=== PATIENT | female | born 1965 | race Caucasian/White ===

== ENCOUNTER → 2020-02-21 | Outpatient (CLI) | payer OTHER | END | disposition home or self-care (01) | LOC: COVID19 12:31 | PROVIDERS: ATTEND Nurse Practitioner Family | DX: D89.9 Disorder involving the immune mechanism, unspecified (principal); J45.909 Unspecified asthma, uncomplicated; Z20.828 Contact with and (suspected) exposure to other viral communicable diseases ==

== ENCOUNTER 2023-04-03 18:53 | Emergency (ER) | payer OTHER ==
[~2023-04-03] VITALS: Ht 160 cm; Wt 93.0 kg
[2023-04-03] MEDS ORDERED: LANSOPRAZOLE30 MG PO (19:21)
[2023-04-03] MEDS ORDERED: PLAQUENIL200 MG PO (19:22)
[2023-04-03] MEDS ORDERED: Ipratropium Brom3 ML INH (19:22)
[2023-04-03] MEDS ORDERED: TOPROL XL25 MG PO (19:23)
[2023-04-03] MEDS ORDERED: SLOW-MAG71.5 MG PO (19:23)
[2023-04-03] MEDS ORDERED: PRAVASTATIN SOD40 MG PO (19:23)
[2023-04-03] MEDS ORDERED: PROBIOTIC1 EAC2 PO (19:23)
[2023-04-03] MEDS ORDERED: HYDROCODONE-AC1 EAC1 PO (22:00)
== END 2023-04-03 22:39 | disposition home or self-care (01) ==
LOC: ED 18:53
DX: S92.354A Nondisplaced fracture of fifth metatarsal bone, right foot, initial encounter for closed fracture (principal); M25.551 Pain in right hip; M25.522 Pain in left elbow; M25.562 Pain in left knee; M25.572 Pain in left ankle and joints of left foot; J45.909 Unspecified asthma, uncomplicated; E78.00 Pure hypercholesterolemia, unspecified; Z91.041 Radiographic dye allergy status; Z88.8 Allergy status to other drugs, medicaments and biological substances; Z91.040 Latex allergy status; W01.0XXA Fall on same level from slipping, tripping and stumbling without subsequent striking against object, initial encounter; Y93.89 Activity, other specified; Y92.009 Unspecified place in unspecified non-institutional (private) residence as the place of occurrence of the external cause; Y99.8 Other external cause status

== ENCOUNTER → 2023-05-05 | Outpatient (CLI) | payer OTHER ==
[~2023-05-05] MED LIST: HYDROCODONE-AC1 EAC1 PO; Ipratropium Brom3 ML INH; LANSOPRAZOLE30 MG PO; PLAQUENIL200 MG PO; PRAVASTATIN SOD40 MG PO; PROBIOTIC1 EAC2 PO; SLOW-MAG71.5 MG PO; TOPROL XL25 MG PO
== END | disposition home or self-care (01) ==
LOC: ORTHO 00:17
PROVIDERS: ATTEND Orthopaedic Surgery
DX: S92.301D Fracture of unspecified metatarsal bone(s), right foot, subsequent encounter for fracture with routine healing (principal); X58.XXXD Exposure to other specified factors, subsequent encounter

== ENCOUNTER 2023-08-20 14:16 | Inpatient (IN) | payer OTHER ==
[~2023-08-20] VITALS: Ht 160 cm; Wt 89.4 kg
[2023-08-20 14:32] VITALS: BP 107/84
[2023-08-20 15:16] LABS: BASO % 0.5 % (0.0-1.0); EOS # 0.1 10*3/uL (0.0-0.4); EOS % 1.7 % (1.0-4.0); LYMPH % 33.1 % (27.0-41.0); MEAN CELL VOLUME 88.6 fl (81.0-99.0); MEAN CORPUSCULAR HGB 29.1 pg (27.0-31.0); MEAN CORPUSCULAR HGB CONC 32.9 g/dl (33.0-37.0); MEAN PLATELET VOLUME 10.8 fl (9.6-12.3); MONO # 0.4 10*3/uL (0.1-1.0); MONO % 6.2 % (3.0-9.0); NEUT # 3.5 10*3/uL (2.3-7.9); NEUT % 58.3 % (47.0-73.0); PLATELET COUNT AUTOMATED 231 10*3/uL (130-400); RED BLOOD COUNT 4.74 10*6/uL (4.10-5.10); RED CELL DISTRI WIDTH 12.3 % (0-14.5); WHITE BLOOD COUNT 5.9 10*3/uL (4.8-10.8)
[2023-08-20 15:37] LABS: ACT PARTIAL THROMBO TIME 26.9 SECONDS (20.0-32.1); ALKALINE PHOSPHATASE 122 U/L (46-116); BUN 12 mg/dl (9-23); CHLORIDE 109 mmol/L (98-107); LIPASE 61 U/L (12-53); POTASSIUM 4.1 mmol/L (3.4-5.1); SGPT/ALT 45 U/L (5-49); TOTAL PROTEIN 7.2 gm/dL (6.0-8.0)
[2023-08-20 16:44] VITALS: BP 121/55
[2023-08-20] MEDS ORDERED: BIOTIN5000 MC2 PO (17:21)
[2023-08-20] MEDS ORDERED: ASPIRIN, CHEWABLE 81 MG TAB PO ONE (17:55)
[2023-08-20 20:25] VITALS: BP 109/55
[2023-08-20] MEDS ORDERED: ACETAMINOPHEN 325 MG TAB PO PRN ×2 (20:25→21:35)
[2023-08-20] MEDS ORDERED: Acetaminophen/Hydrocodone 5 MG/325 MG TABLET PO PRN (21:35)
[2023-08-20] MEDS ORDERED: Magnesium Hydroxide 30 ML UDC PO PRN (21:35)
[2023-08-20] MEDS ORDERED: BISACODYL 5 MG TAB PO PRN (21:35)
[2023-08-20] MEDS ORDERED: BISACODYL 10 MG SUPP R PRN (21:35)
[2023-08-20] MEDS ORDERED: MORPHINE Sulfate 2 MG/ML SYR IV PRN (21:35)
[2023-08-20] MEDS ORDERED: TEMAZEPAM 15 MG CAP PO PRN (21:35)
[2023-08-20] MEDS ORDERED: Pantoprazole Sodium 40 MG TAB PO PRN (21:40)
[2023-08-20] MEDS ORDERED: SODIUM CHLORIDE 0.9% 1,000 ML IV ONE (21:40)
[2023-08-20] MEDS ORDERED: ATORVASTATIN CALCIUM 40 MG TABLET PO SCH (22:00)
[2023-08-20 23:56] VITALS: BP 118/49
[2023-08-21 05:37] VITALS: BP 118/48
[2023-08-21 07:34] LABS: BASO % 0.6 % (0.0-1.0); EOS # 0.2 10*3/uL (0.0-0.4); LYMPH % 36.4 % (27.0-41.0); MEAN CELL VOLUME 87.6 fl (81.0-99.0); MEAN CORPUSCULAR HGB 29.3 pg (27.0-31.0); MEAN CORPUSCULAR HGB CONC 33.4 g/dl (33.0-37.0); MEAN PLATELET VOLUME 11.2 fl (9.6-12.3); MONO # 0.4 10*3/uL (0.1-1.0); MONO % 7.1 % (3.0-9.0); NEUT # 2.8 10*3/uL (2.3-7.9); NEUT % 52.7 % (47.0-73.0); PLATELET COUNT AUTOMATED 199 10*3/uL (130-400); RED BLOOD COUNT 4.34 10*6/uL (4.10-5.10); RED CELL DISTRI WIDTH 12.6 % (0-14.5); WHITE BLOOD COUNT 5.4 10*3/uL (4.8-10.8)
[2023-08-21 07:49] LABS: ALKALINE PHOSPHATASE 113 U/L (46-116); BUN 10 mg/dl (9-23); CHLORIDE 109 mmol/L (98-107); CHOLESTEROL 189 mg/dL (<200); FREE T4 1.01 ng/dl (0.89-1.76); LDL CHOLESTEROL 113 mg/dL (9-159); POTASSIUM 3.8 mmol/L (3.4-5.1); SGPT/ALT 33 U/L (5-49); TOTAL PROTEIN 6.4 gm/dL (6.0-8.0); TRIGLYCERIDES 191 mg/dl (<150)
[2023-08-21 07:58] LABS: VITAMIN D, 25-HYDROXY 43.7 ng/mL (30-100)
[2023-08-21] MEDS ORDERED: ASPIRIN ENTERIC COATED 81 MG TAB PO SCH (10:00)
[2023-08-21] MEDS ORDERED: Enoxaparin Sodium 40 MG/0.4 ML SYR SC SCH (10:00)
[2023-08-21] MEDS ORDERED: METOPROLOL SUCCINATE XR 25 MG TAB PO SCH (10:00)
[2023-08-21 17:10] VITALS: BP 113/70
[2023-08-21 20:00] VITALS: BP 115/64
[2023-08-22] VITALS: BP 118/67
[2023-08-22] MEDS ORDERED: Regadenoson 0.4 MG/5 ML SYR IV ONE (06:40)
[2023-08-22 08:00] VITALS: BP 129/72
== END 2023-08-22 15:17 | disposition home or self-care (01) | DRG 313 ==
LOC: ED 14:16 → EDHOLD 18:15 → 4E 08-21 16:51
PROVIDERS: Emergency Medicine; Student in an Organized Health Care Education/Training Program; ADMIT Internal Medicine; ATTEND Internal Medicine
PROC: 4A02XM4 Measurement of Cardiac Total Activity, External Approach (ICD-10-PCS; principal; 2023-08-22)
PROC: 3E073KZ Introduction of Other Diagnostic Substance into Coronary Artery, Percutaneous Approach (ICD-10-PCS; 2023-08-22)
DX: R07.9 Chest pain, unspecified (principal); M35.1 Other overlap syndromes; J45.909 Unspecified asthma, uncomplicated; E78.5 Hyperlipidemia, unspecified; M32.9 Systemic lupus erythematosus, unspecified; I73.00 Raynaud's syndrome without gangrene; I48.0 Paroxysmal atrial fibrillation; K76.0 Fatty (change of) liver, not elsewhere classified; I20.89 Other forms of angina pectoris; Z91.041 Radiographic dye allergy status; Z79.82 Long term (current) use of aspirin; Z79.899 Other long term (current) drug therapy; Z83.3 Family history of diabetes mellitus; Z82.3 Family history of stroke

== ENCOUNTER → 2023-08-29 | Outpatient (CLI) | payer OTHER ==
[~2023-08-29] MED LIST changes: +BIOTIN5000 MC2 PO
== END | disposition home or self-care (01) ==
LOC: RAD 08-01 13:30
PROVIDERS: ATTEND Orthopaedic Surgery
DX: M81.0 Age-related osteoporosis without current pathological fracture (principal); N95.0 Postmenopausal bleeding; Z90.710 Acquired absence of both cervix and uterus

== ENCOUNTER 2024-02-22 20:33 | Inpatient (IN) | payer OTHER ==
[~2024-02-22] VITALS: Ht 157.4 cm; Wt 94.8 kg
[2024-02-22 20:38] VITALS: BP 146/101
[2024-02-22] MEDS ORDERED: SODIUM CHLORIDE 0.9% 1,000 ML IV ONE (20:55)
[2024-02-22 21:03] LABS: BILIRUBIN Negative (Negative); BLOOD Negative (Negative); CLARITY Clear (Clear); COLOR Yellow (Yellow); GLUCOSE Negative (Negative); KETONE 2+ (Negative); LEUKO ESTERASE Negative (Negative); NITRITE Negative (Negative); PH 5.5 (4.5-8.0); UROBILINOGEN 0.2 E.U./dl (0.0-1.0)
[2024-02-22 21:07] LABS: BASO % 0.2 % (0.0-1.0); EOS % 0.3 % (1.0-4.0); HEMATOCRIT 42.6 % (37.0-47.0); LYMPH # 1.8 10*3/uL (1.3-4.4); LYMPH % 12.7 % (27.0-41.0); MEAN CELL VOLUME 88.4 fl (81.0-99.0); MEAN CORPUSCULAR HGB 29.7 pg (27.0-31.0); MEAN CORPUSCULAR HGB CONC 33.6 g/dl (33.0-37.0); MEAN PLATELET VOLUME 10.8 fl (9.6-12.3); MONO # 1.3 10*3/uL (0.1-1.0); MONO % 8.7 % (3.0-9.0); NEUT # 11.3 10*3/uL (2.3-7.9); NEUT % 77.8 % (47.0-73.0); PLATELET COUNT AUTOMATED 263 10*3/uL (130-400); RED BLOOD COUNT 4.82 10*6/uL (4.10-5.10); RED CELL DISTRI WIDTH 12.4 % (0-14.5); WHITE BLOOD COUNT 14.5 10*3/uL (4.8-10.8)
[2024-02-22 21:12] LABS: WBC 0-2 wbc/hpf (0-5)
[2024-02-22 21:30] LABS: ALKALINE PHOSPHATASE 143 U/L (46-116); BUN 11 mg/dl (9-23); CHLORIDE 104 mmol/L (98-107); LIPASE 44 U/L (12-53); POTASSIUM 3.5 mmol/L (3.4-5.1); SGPT/ALT 20 U/L (5-49); TOTAL PROTEIN 7.9 gm/dL (6.0-8.0)
[2024-02-22] MEDS ORDERED: Ondansetron Hydrochloride 4 MG/2 ML VIAL IV ONE (21:30)
[2024-02-22] MEDS ORDERED: METRONIDAZOLE 100 ML IV ONE (22:00)
[2024-02-22] MEDS ORDERED: SODIUM CHLORIDE 0.9% 1,000 ML IV SCH (22:00)
[2024-02-22] MEDS ORDERED: CIPROFLOXACIN 200 ML IV ONE ×3 (22:00→22:29)
[2024-02-22] MEDS ORDERED: CIPROFLOXACIN 100 ML IV SCH (22:30)
[2024-02-22] MEDS ORDERED: ALBUTEROL SULFATE HF (22:40)
[2024-02-22] MEDS ORDERED: MIDODRINE HCL2.5 MG PO (22:41)
[2024-02-22 22:43] VITALS: BP 108/54
[2024-02-22] MEDS ORDERED: Ketorolac Tromethamine 15 MG/ML VIAL IM ONE (23:10)
[2024-02-22] MEDS ORDERED: Ketorolac Tromethamine 15 MG/ML VIAL IV ONE (23:10)
[2024-02-22] MEDS ORDERED: Lactated Ringer's Solution 1,000 ML IV ONE (23:10)
[2024-02-22] MEDS ORDERED: BISACODYL 5 MG TAB PO PRN (23:10)
[2024-02-22] MEDS ORDERED: Magnesium Hydroxide 30 ML UDC PO PRN (23:10)
[2024-02-22] MEDS ORDERED: ACETAMINOPHEN 325 MG TAB PO PRN (23:10)
[2024-02-22] MEDS ORDERED: HYDROmorphONE Hydrochloride 0.5 MG/0.5 ML SYRINGE IV PRN (23:10)
[2024-02-22] MEDS ORDERED: ACETAMINOPHEN 650 MG SUPP R PRN (23:10)
[2024-02-22] MEDS ORDERED: TEMAZEPAM 15 MG CAP PO PRN (23:10)
[2024-02-22] MEDS ORDERED: BISACODYL 10 MG SUPP R PRN (23:10)
[2024-02-23] VITALS (8 sets, daily range): BP systolic 87–149; BP diastolic 45–87
[2024-02-23] MEDS ORDERED: Ondansetron Hydrochloride 4 MG/2 ML VIAL IV PRN (00:20)
[2024-02-23 04:22] LABS: BASO % 0.4 % (0.0-1.0); EOS # 0.1 10*3/uL (0.0-0.4); EOS % 0.6 % (1.0-4.0); HEMATOCRIT 34.8 % (37.0-47.0); LYMPH # 2.4 10*3/uL (1.3-4.4); LYMPH % 22.4 % (27.0-41.0); MEAN CORPUSCULAR HGB 30.4 pg (27.0-31.0); MEAN CORPUSCULAR HGB CONC 34.2 g/dl (33.0-37.0); MEAN PLATELET VOLUME 11.1 fl (9.6-12.3); MONO # 1.2 10*3/uL (0.1-1.0); NEUT # 7.1 10*3/uL (2.3-7.9); NEUT % 65.4 % (47.0-73.0); RED BLOOD COUNT 3.91 10*6/uL (4.10-5.10); RED CELL DISTRI WIDTH 12.7 % (0-14.5); WHITE BLOOD COUNT 10.8 10*3/uL (4.8-10.8)
[2024-02-23 04:32] LABS: PLATELET COUNT AUTOMATED 179 10*3/uL (130-400)
[2024-02-23 04:57] LABS: BUN 8 mg/dl (9-23); CHLORIDE 110 mmol/L (98-107); CHOLESTEROL 141 mg/dL (<200); FREE T4 1.05 ng/dl (0.89-1.76); LDL CHOLESTEROL 75 mg/dL (9-159); POTASSIUM 3.8 mmol/L (3.4-5.1); TRIGLYCERIDES 78 mg/dl (<150)
[2024-02-23] MEDS ORDERED: Piperacillin Sodium/Tazobact 50 ML IV SCH (06:00)
[2024-02-23] MEDS ORDERED: METOPROLOL SUCCINATE XR 25 MG TAB PO PRN (06:15)
[2024-02-23] MEDS ORDERED: Midodrine Hydrochloride 5 MG TAB PO SCH (06:15)
[2024-02-23] MEDS ORDERED: SODIUM CHLORIDE 0.9% 1,000 ML IV ONE ×2 (06:40→22:45)
[2024-02-23] MEDS ORDERED: Enoxaparin Sodium 40 MG/0.4 ML SYR SC SCH (10:00)
[2024-02-23] MEDS ORDERED: Hydroxychloroquine Sulfate 200 MG TAB PO SCH (10:00)
[2024-02-23] MEDS ORDERED: HYDROmorphONE Hydrochloride 1 MG/ML SYR IV PRN (12:10)
[2024-02-23] MEDS ORDERED: Midodrine Hydrochloride 5 MG TAB PO PRN (14:48)
[2024-02-23] MEDS ORDERED: Meclizine Hydrochloride 12.5 MG TAB PO ONE (22:45)
[2024-02-23] MEDS ORDERED: METOPROLOL SUCCINATE XR 25 MG TAB PO ONE (22:45)
[2024-02-24] VITALS: BP 126/74
[2024-02-24 05:47] LABS: CHLORIDE 108 mmol/L (98-107)
[2024-02-24 05:51] LABS: BUN < 5 mg/dl (9-23)
[2024-02-24 06:19] LABS: BASO % 0.2 % (0.0-1.0); EOS # 0.1 10*3/uL (0.0-0.4); EOS % 1.3 % (1.0-4.0); HEMATOCRIT 35.9 % (37.0-47.0); LYMPH # 1.7 10*3/uL (1.3-4.4); LYMPH % 16.8 % (27.0-41.0); MEAN CELL VOLUME 90.4 fl (81.0-99.0); MEAN CORPUSCULAR HGB 29.5 pg (27.0-31.0); MEAN CORPUSCULAR HGB CONC 32.6 g/dl (33.0-37.0); MEAN PLATELET VOLUME 11.6 fl (9.6-12.3); MONO # 0.8 10*3/uL (0.1-1.0); MONO % 7.9 % (3.0-9.0); NEUT # 7.3 10*3/uL (2.3-7.9); NEUT % 73.5 % (47.0-73.0); PLATELET COUNT AUTOMATED 191 10*3/uL (130-400); RED BLOOD COUNT 3.97 10*6/uL (4.10-5.10); RED CELL DISTRI WIDTH 12.6 % (0-14.5); WHITE BLOOD COUNT 9.9 10*3/uL (4.8-10.8)
[2024-02-24 08:00] VITALS: BP 104/68
[2024-02-24 12:00] VITALS: BP 109/56
[2024-02-24 16:00] VITALS: BP 90/46
[2024-02-24 20:00] VITALS: BP 114/55
[2024-02-24] MEDS ORDERED: Acetaminophen/Oxycodone 5 MG/325 MG TABLET PO ONE (23:50)
[2024-02-25] VITALS: BP 110/62
[2024-02-25] MEDS ORDERED: Cholecalciferol 5,000 IU CAP (125 MCG) PO SCH (00:20)
[2024-02-25 08:00] VITALS: BP 100/64
[2024-02-25 09:34] LABS: BILIRUBIN Negative (Negative); BLOOD Negative (Negative); CLARITY Clear (Clear); COLOR Yellow (Yellow); GLUCOSE Negative (Negative); KETONE 2+ (Negative); LEUKO ESTERASE Trace (Negative); NITRITE Negative (Negative); PH 5.5 (4.5-8.0); SPECIFIC GRAVITY >= 1.030 (1.001-1.030)
[2024-02-25 11:15] VITALS: BP 100/92; BP 120/68; BP 146/92
[2024-02-25 11:43] LABS: BACTERIA 1+; CALCIUM OXALATE CRYSTALS 1+
[2024-02-25] MEDS ORDERED: SODIUM CHLORIDE 0.9% 1,000 ML IV ONE (14:25)
[2024-02-25 15:19] VITALS: BP 117/59
[2024-02-25 20:00] VITALS: BP 108/55
[2024-02-26] VITALS: BP 131/66
[2024-02-26 07:47] LABS: ALKALINE PHOSPHATASE 118 U/L (46-116); BUN 5 mg/dl (9-23); CHLORIDE 106 mmol/L (98-107); POTASSIUM 3.3 mmol/L (3.4-5.1); SGPT/ALT 15 U/L (5-49); TOTAL PROTEIN 6.6 gm/dL (6.0-8.0)
[2024-02-26 08:00] VITALS: BP 140/78; BP 144/98
[2024-02-26] MEDS ORDERED: POTASSIUM CHLORIDE 20 MEQ TAB PO ONE (08:00)
[2024-02-26] MEDS ORDERED: HYDROCODONE-AC1 EAC1 PO (11:34)
[2024-02-26] MEDS ORDERED: VITAMIN D3125 MC1 PO (11:34)
[2024-02-26] MEDS ORDERED: Ondansetron4 MG PO (11:34)
[2024-02-26] MEDS ORDERED: AMOX-CLAV 875-1 EACH PO (11:34)
== END 2024-02-26 13:06 | disposition home or self-care (01) | DRG 872 ==
LOC: ED 20:33 → 4E 22:44 → EDHOLD 22:44 → 4E 02-23 11:57
PROVIDERS: Internal Medicine; Registered Nurse; Student in an Organized Health Care Education/Training Program; ADMIT Internal Medicine; ATTEND Internal Medicine
DX: A41.9 Sepsis, unspecified organism (principal); K57.32 Diverticulitis of large intestine without perforation or abscess without bleeding; E87.1 Hypo-osmolality and hyponatremia; G90.A Postural orthostatic tachycardia syndrome [POTS]; I48.91 Unspecified atrial fibrillation; M06.9 Rheumatoid arthritis, unspecified; J45.909 Unspecified asthma, uncomplicated; E78.5 Hyperlipidemia, unspecified; I12.9 Hypertensive chronic kidney disease with stage 1 through stage 4 chronic kidney disease, or unspecified chronic kidney disease; R82.4 Acetonuria; N18.31 Chronic kidney disease, stage 3a; Z87.81 Personal history of (healed) traumatic fracture; Z90.722 Acquired absence of ovaries, bilateral; Z80.42 Family history of malignant neoplasm of prostate; Z91.041 Radiographic dye allergy status; Z82.3 Family history of stroke; Z83.3 Family history of diabetes mellitus

== ENCOUNTER 2024-03-03 12:57 | Emergency (ER) | payer OTHER ==
[~2024-03-03] VITALS: Ht 157.4 cm; Wt 88.5 kg
[~2024-03-03 12:57] MED LIST changes: +ALBUTEROL SULFATE HF; +AMOX-CLAV 875-1 EACH PO; +MIDODRINE HCL2.5 MG PO; +Ondansetron4 MG PO; +VITAMIN D3125 MC1 PO
[2024-03-03] MEDS ORDERED: Albuterol Sulf/Ipratropium 3 ML VIAL NEB ONE (13:15)
[2024-03-03] MEDS ORDERED: methylPREDNISolone sod succ 125 MG VIAL IV ONE (13:15)
[2024-03-03 13:23] LABS: BASO % 0.4 % (0.0-1.0); EOS # 0.2 10*3/uL (0.0-0.4); EOS % 2.4 % (1.0-4.0); HEMATOCRIT 40.4 % (37.0-47.0); LYMPH # 1.8 10*3/uL (1.3-4.4); LYMPH % 19.3 % (27.0-41.0); MEAN CORPUSCULAR HGB 29.5 pg (27.0-31.0); MEAN CORPUSCULAR HGB CONC 33.2 g/dl (33.0-37.0); MEAN PLATELET VOLUME 10.7 fl (9.6-12.3); MONO # 0.5 10*3/uL (0.1-1.0); MONO % 5.8 % (3.0-9.0); NEUT # 6.7 10*3/uL (2.3-7.9); NEUT % 71.8 % (47.0-73.0); PLATELET COUNT AUTOMATED 301 10*3/uL (130-400); RED BLOOD COUNT 4.54 10*6/uL (4.10-5.10); WHITE BLOOD COUNT 9.3 10*3/uL (4.8-10.8)
[2024-03-03 13:45] LABS: BUN 11 mg/dl (9-23); CHLORIDE 104 mmol/L (98-107); POTASSIUM 3.5 mmol/L (3.4-5.1)
[2024-03-03 14:40] LABS: BILIRUBIN Negative (Negative); BLOOD Negative (Negative); CLARITY Clear (Clear); COLOR Yellow (Yellow); GLUCOSE Negative (Negative); KETONE Trace (Negative); LEUKO ESTERASE Trace (Negative); NITRITE Negative (Negative); PH 5.5 (4.5-8.0)
[2024-03-03 14:48] LABS: MUCOUS 1+
[2024-03-03 14:49] LABS: BACTERIA 1+
[2024-03-03] MEDS ORDERED: AVPAK AZITHROM250 M1 PO (14:52)
[2024-03-03] MEDS ORDERED: PREDNISONE20 M1 PO (14:52)
[2024-03-03] MEDS ORDERED: AZITHROMYCIN 250 MG TAB PO ONE (14:55)
== END 2024-03-03 15:07 | disposition home or self-care (01) ==
LOC: ED 12:57
PROVIDERS: Nurse Practitioner Family
DX: J45.901 Unspecified asthma with (acute) exacerbation (principal); E87.1 Hypo-osmolality and hyponatremia; I48.91 Unspecified atrial fibrillation; E78.5 Hyperlipidemia, unspecified; E78.00 Pure hypercholesterolemia, unspecified; I12.9 Hypertensive chronic kidney disease with stage 1 through stage 4 chronic kidney disease, or unspecified chronic kidney disease; N18.31 Chronic kidney disease, stage 3a; Z91.041 Radiographic dye allergy status; Z95.5 Presence of coronary angioplasty implant and graft; Z98.890 Other specified postprocedural states; Z79.899 Other long term (current) drug therapy

== ENCOUNTER 2024-03-05 18:18 | Emergency (ER) | payer OTHER ==
[~2024-03-05] VITALS: Ht 157.4 cm; Wt 87.1 kg
[~2024-03-05 18:18] MED LIST changes: +AVPAK AZITHROM250 M1 PO; +PREDNISONE20 M1 PO
[2024-03-05] MEDS ORDERED: Albuterol Sulf/Ipratropium 3 ML VIAL NEB ONE (19:15)
[2024-03-05] MEDS ORDERED: SODIUM CHLORIDE 0.9% 1,000 ML IV ONE (19:15)
[2024-03-05] MEDS ORDERED: methylPREDNISolone sod succ 1,000 MG/16 ML VIAL IM ONE (19:15)
[2024-03-05] MEDS ORDERED: methylPREDNISolone sod succ 125 MG VIAL IM ONE (19:20)
[2024-03-05 19:33] LABS: HEMATOCRIT 40.6 % (37.0-47.0); MEAN CELL VOLUME 89.4 fl (81.0-99.0); MEAN CORPUSCULAR HGB 29.3 pg (27.0-31.0); MEAN CORPUSCULAR HGB CONC 32.8 g/dl (33.0-37.0); MEAN PLATELET VOLUME 10.5 fl (9.6-12.3); PLATELET COUNT AUTOMATED 329 10*3/uL (130-400); RED BLOOD COUNT 4.54 10*6/uL (4.10-5.10); RED CELL DISTRI WIDTH 12.1 % (0-14.5); WHITE BLOOD COUNT 15.2 10*3/uL (4.8-10.8)
[2024-03-05 19:46] LABS: MANUAL DIFF REFLEX YES
[2024-03-05 19:54] LABS: POTASSIUM 4.2 mmol/L (3.4-5.1)
[2024-03-05 20:00] LABS: TOTAL CELLS COUNTED 100 #CELLS
[2024-03-05 20:01] LABS: OVALOCYTES FEW; PLATELET SUFFICIENCY NORMAL (NORMAL); POLYCHROMASIA SLIGHT
== END 2024-03-05 22:17 | disposition home or self-care (01) ==
LOC: ED 18:18
PROVIDERS: Nurse Practitioner Family
DX: J45.901 Unspecified asthma with (acute) exacerbation (principal); I10 Essential (primary) hypertension; Z91.041 Radiographic dye allergy status; Z98.890 Other specified postprocedural states; Z95.5 Presence of coronary angioplasty implant and graft

== ENCOUNTER → 2024-04-13 | Outpatient (CLI) | payer OTHER ==
[~2024-04-13] MED LIST changes: +Albuterol Sulfate 2.5 MG/3 ML VIAL NEB ONE
[2024-04-13 12:54] LABS: BASO % 0.4 % (0.0-1.0); EOS # 0.2 10*3/uL (0.0-0.4); EOS % 2.2 % (1.0-4.0); HEMATOCRIT 44.2 % (37.0-47.0); LYMPH # 2.6 10*3/uL (1.3-4.4); LYMPH % 34.9 % (27.0-41.0); MEAN CELL VOLUME 89.8 fl (81.0-99.0); MEAN CORPUSCULAR HGB 29.1 pg (27.0-31.0); MEAN CORPUSCULAR HGB CONC 32.4 g/dl (33.0-37.0); MONO # 0.4 10*3/uL (0.1-1.0); NEUT # 4.2 10*3/uL (2.3-7.9); NEUT % 56.4 % (47.0-73.0); PLATELET COUNT AUTOMATED 238 10*3/uL (130-400); RED BLOOD COUNT 4.92 10*6/uL (4.10-5.10); RED CELL DISTRI WIDTH 12.9 % (0-14.5); WHITE BLOOD COUNT 7.4 10*3/uL (4.8-10.8)
== END | disposition home or self-care (01) ==
LOC: CP 11:30 → LAB 11:34
PROVIDERS: ATTEND Nurse Practitioner Adult Health
DX: J45.50 Severe persistent asthma, uncomplicated (principal)